=== PATIENT | male | born 1985 | race African-American/Black ===

== ENCOUNTER 2016-09-19 20:39 | Emergency (ER) | payer OTHER | END 2016-09-19 21:52 | disposition home or self-care (01) | LOC: CED 20:39 | DX: J02.9 Acute pharyngitis, unspecified (principal); I45.6 Pre-excitation syndrome; F17.200 Nicotine dependence, unspecified, uncomplicated | CPT/HCPCS: 87651; 99283 ==

== ENCOUNTER 2016-10-08 23:48 | Emergency (ER) | payer OTHER | END 2016-10-09 02:10 | disposition home or self-care (01) | LOC: CED 23:48 | DX: J02.0 Streptococcal pharyngitis (principal); F17.210 Nicotine dependence, cigarettes, uncomplicated | CPT/HCPCS: 87880; 99283 ==